=== PATIENT | female | born 1950 | race Caucasian/White ===

== ENCOUNTER 2019-10-07 21:14 | Inpatient (IN) ==
[2019-10-07 21:57] LABS: Basophils % 0.3 %; Eosinophils # 0.2 K/mcL (0.0-0.6); Eosinophils % 1.9 %; Hematocrit 40.5 % (35.3-44.9); Hemoglobin 13.6 g/dL (11.5-15.4); Immature Granulocytes % 0.3 % (0-4); Lymphocytes # 3.1 K/mcL (0.6-4.6); Lymphocytes % 30.2 %; Mean Corpuscular HGB Conc 33.6 g/dL (31.6-35.5); Mean Corpuscular Hemoglobin 29.8 pg (28.0-33.3); Mean Corpuscular Volume 88.8 fL (83.0-100.0); Mean Platelet Volume 11.1 fL (9.4-12.4); Monocytes # 0.8 K/mcL (0.0-1.3); Monocytes % 8.2 %; Neutrophils # 6.1 K/mcL (1.6-8.9); Platelet Count 199 K/mcL (140-400); Red Blood Count 4.56 M/mcL (3.82-4.97); Red Cell Distribution Width 13.1 % (11.5-14.5); Segmented Neutrophils % 59.1 %; White Blood Count 10.3 K/mcL (4.3-11.1)
[2019-10-07 22:02] LABS: Prothrombin Time 11.4 Seconds (9.4-12.1)
[2019-10-07] MEDS ORDERED: Aspirin 325 MG TABLET PO ONE (22:02)
[2019-10-07] MEDS ORDERED: Ondansetron 4 MG/2 ML VIAL IVP ONE (22:02)
[2019-10-07 22:04] LABS: Activated Partial Thrombo Time 33.7 Seconds (26.0-36.0)
[2019-10-07 22:19] LABS: BUN/Creatinine Ratio 30 (6-26); Blood Urea Nitrogen 27 mg/dL (8-23); Carbon Dioxide 26 mEq/L (23-29); Chloride 105 mEq/L (98-107); Glucose 113 mg/dL (70-105); Osmolality,Calculated 294 (280-300); Potassium 3.7 mEq/L (3.5-5.1); Sodium 139 mEq/L (136-145); Troponin I < 0.03 ng/mL (< 0.04); eGFR For African Americans > 60 (> 60); eGFR For Non-African Americans > 60 (> 60)
[2019-10-07] MEDS ORDERED: *HR* Heparin 5,000 UNIT/ML VIAL IVP ONE (22:55)
[2019-10-07] MEDS ORDERED: *HR* Heparin 5,000 UNIT/ML VIAL IVP PRN ×2 (22:55)
[2019-10-07] MEDS ORDERED: Heparin 25,000 UNIT/250 ML D5W 25,000 UNIT/250 ML IV.SOLN IVC SCH (23:00)
[2019-10-08] MEDS ORDERED: Acetaminophen 325 MG TABLET PO PRN (00:58)
[2019-10-08] MEDS ORDERED: Naloxone 0.4 MG/ML INJ IVP PRN (00:58)
[2019-10-08] MEDS ORDERED: Ondansetron 4 MG/2 ML VIAL IVP PRN (00:58)
[2019-10-08] MEDS: 0.9 % Sodium Chloride 1,000 ML IVC SCH ×2 (01:28→14:30)
[2019-10-08 04:21] LABS: Basophils % 0.3 %; Eosinophils # 0.2 K/mcL (0.0-0.6); Eosinophils % 2.1 %; Hematocrit 38.9 % (35.3-44.9); Hemoglobin 12.8 g/dL (11.5-15.4); Immature Granulocytes % 0.2 % (0-4); Lymphocytes # 3.6 K/mcL (0.6-4.6); Lymphocytes % 36.9 %; Mean Corpuscular HGB Conc 32.9 g/dL (31.6-35.5); Mean Corpuscular Hemoglobin 29.8 pg (28.0-33.3); Mean Corpuscular Volume 90.7 fL (83.0-100.0); Mean Platelet Volume 11.5 fL (9.4-12.4); Monocytes # 0.8 K/mcL (0.0-1.3); Monocytes % 8.2 %; Neutrophils # 5.1 K/mcL (1.6-8.9); Platelet Count 177 K/mcL (140-400); Red Blood Count 4.29 M/mcL (3.82-4.97); Red Cell Distribution Width 13.1 % (11.5-14.5); Segmented Neutrophils % 52.3 %; White Blood Count 9.7 K/mcL (4.3-11.1)
[2019-10-08 04:23] LABS: INR 1.1; Prothrombin Time 12.6 Seconds (9.4-12.1)
[2019-10-08 04:40] LABS: Alanine Aminotransferase 10 Units/L (7-52); Albumin 4.2 g/dL (3.5-5.7); Albumin/Globulin Ratio 1.8 (1.1-2.2); Alkaline Phosphatase 29 Units/L (34-104); Aspartate Amino Transferase 13 Units/L (13-39); BUN/Creatinine Ratio 29 (6-26); Bilirubin,Total 0.4 mg/dL (0.3-1.0); Blood Urea Nitrogen 24 mg/dL (8-23); Calcium 9.3 mg/dL (8.6-10.3); Carbon Dioxide 29 mEq/L (23-29); Chloride 107 mEq/L (98-107); Chol/HDL Ratio 3.3 (0-4.9); Cholesterol 136 mg/dL (< 200); Globulin 2.3 g/dL (2.4-3.5); Glucose 101 mg/dL (70-105); HDL Cholesterol 41 mg/dL (40-59); LDL Cholesterol,Calculated 72 mg/dL (0-99); Osmolality,Calculated 296 (280-300); Phosphorous 2.9 mg/dL (2.7-4.5); Potassium 3.9 mEq/L (3.5-5.1); Sodium 141 mEq/L (136-145); Total Protein 6.5 g/dL (6.4-8.9); Triglycerides 117 mg/dL (< 150); eGFR For African Americans > 60 (> 60); eGFR For Non-African Americans > 60 (> 60)
[2019-10-08 08:32] LABS: Estimated Average Glucose 137 mg/dl
[2019-10-08] MEDS ORDERED: amLODIPine 5 MG TABLET PO SCH (09:00)
[2019-10-08] MEDS: Aspirin 81 MG TAB.CHEW PO SCH (09:09)
[2019-10-08] MEDS: Loratadine 10 MG TABLET PO SCH (09:09)
[2019-10-08] MEDS ORDERED: Adenosine 90 MG/30 ML MLS IV ONE (09:46)
[2019-10-08] MEDS ORDERED: Perflutren Lipid Microsphere 1.3 ML in 0.9 % Sodium Chloride 8.7 ML IVP ONE (11:17)
[2019-10-08] MEDS ORDERED: ISOVUE-370 200 ML INFUS..BTL ONE ×2 (14:27→15:50)
[2019-10-08] MEDS ORDERED: Nitroglycerin 1,000 MCG/10 ML VIAL IV ONE (14:27)
[2019-10-08] MEDS ORDERED: *HR* Heparin 10,000 UNIT/10 ML VIAL ONE (14:27)
[2019-10-08] MEDS ORDERED: 0.9 % Sodium Chloride 1,000 ML ONE ×2 (14:27→14:48)
[2019-10-08] MEDS ORDERED: Heparin 1,000 UNITS/500 mL 500 ML ONE (14:27)
[2019-10-08] MEDS ORDERED: Tirofiban 12.5 MG/250ML 12.5 MG/250 ML BAG ONE (15:40)
[2019-10-08] MEDS ORDERED: Tirofiban 12.5 MG/250ML 12.5 MG/250 ML BAG IVC SCH (16:15)
[2019-10-08] MEDS ORDERED: *HR* Midazolam HCl 2 MG/2 ML VIAL ONE (16:40)
[2019-10-08] MEDS ORDERED: *HR* FentaNYL (PF) 100 MCG/2 ML VIAL ONE (16:42)
[2019-10-09 02:34] LABS: Hematocrit 36.1 % (35.3-44.9); Hemoglobin 11.9 g/dL (11.5-15.4)
[2019-10-09 02:55] LABS: BUN/Creatinine Ratio 22 (6-26); Blood Urea Nitrogen 19 mg/dL (8-23); eGFR For African Americans > 60 (> 60); eGFR For Non-African Americans > 60 (> 60)
[2019-10-09] MEDS ORDERED: *HR* Enoxaparin 40 MG/0.4 ML SYRINGE SQ SCH (06:00)
[2019-10-09 07:10] VITALS: BP 105/61
[2019-10-09] MEDS: Loratadine 10 MG TABLET PO SCH (09:10)
[2019-10-09] MEDS: Aspirin 81 MG TAB.CHEW PO SCH (09:10)
== END 2019-10-09 09:47 | disposition home or self-care (01) | DRG 247 ==
LOC: 2ANU 21:14 → EMEROOARM 21:14 → 2ANU 10-08 00:31
PROVIDERS: ADMIT Internal Medicine; ATTEND Internal Medicine